=== PATIENT | male | born 1970 | race African-American/Black ===

== ENCOUNTER 2017-07-08 11:02 | Emergency (ER) | payer OTHER | END 2017-07-08 13:27 | disposition home or self-care (01) | LOC: ERS 11:02 | DX: J11.1 Influenza due to unidentified influenza virus with other respiratory manifestations (principal); F17.210 Nicotine dependence, cigarettes, uncomplicated; K21.9 Gastro-esophageal reflux disease without esophagitis; Z79.899 Other long term (current) drug therapy | CPT/HCPCS: 87081; 87430; 99283 ==